=== PATIENT | male | born 1965 | race Caucasian/White ===

== ENCOUNTER 2020-03-11 02:13 | Emergency (ER) | payer MEDICARE, OTHER ==
[2020-03-11 02:38] VITALS: BP 142/94; PULSE 114
--- NOTE | 2020-03-11 02:54 | EDM.PDOC ---
ED HPI GENERAL MEDICAL PROBLEM - General Chief Complaint: Respiratory Problem Stated Complaint: PTSD Time Seen by Provider: 03/11/20 02:49 Source of Information: Reports: Patient History Limitations: Reports: No Limitations - History of Present Illness INITIAL COMMENTS - FREE TEXT/NARRATIVE: Dajuan is a 55 yo male brought in by law enforcement for medical clearance. He had a an anxiety attack during an arrest situation. He complains of feeling tight,shaky,tired and anxious. He says he usually gets this way when anxiety or 'pushed'.He endorses a h/o PTSD,NELLA.He does not take any medications. 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 ED EXAM, GENERAL - Physical Exam Exam: See Below Exam Limited By: No Limitations General Appearance: Anxious, Mild Distress Ears: Normal External Exam Nose: Normal Inspection Throat/Mouth: Normal Inspection Head: Atraumatic Neck: Normal Inspection Respiratory/Chest: No Respiratory Distress Cardiovascular: Tachycardia GI/Abdominal: Normal Bowel Sounds Back Exam: Normal Inspection Extremities: Other (AKA,right) Psychiatric: Anxious Skin Exam: Warm Lymphatic: No Adenopathy EKG INTERPRETATION EKG Date: 03/11/20 Rhythm: NSR Dexter: Normal Course - Vital Signs Last Recorded V/S: Last Vital Signs Temp 98.1 F 03/11/20 02:15 Pulse 114 H 03/11/20 02:15 Resp 21 H 03/11/20 02:15 BP 142/94 H 03/11/20 02:15 Pulse Ox 99 03/11/20 02:15 - Orders/Labs/Meds Labs: Laboratory Tests 03/11/20 03/11/20 03/11/20 Range/Units 02:30 02:30 02:30 WBC 10.0 (4.5-12.0) X10-3/uL RBC 5.05 (4.30-5.75) x10(6)uL Hgb 14.5 (13.5-17.8) g/dL Hct 43.9 (30.0-51.3) % MCV 86.8 (80-96) fL MCH 28.8 (27.7-33.6) pg MCHC 33.1 (32.2-35.4) g/dL RDW 12.3 (11.5-15.5) % Plt Count 374 H (125-369) X10(3)uL MPV 7.2 L (7.4-10.4) fL Neut % (Auto) 79.9 (46-82) % Lymph % (Auto) 15.3 (13-37) % [place] % (Auto) 4.1 (4-12) % Eos % (Auto) 0 L (1.0-5.0) % Baso % (Auto) 1 (0-2) % Neut # (Auto) 8.0 (1.6-8.3) # Lymph # (Auto) 1.5 (0.6-5.0) # [place] # (Auto) 0.4 (0.0-1.3) # Eos # (Auto) 0.0 (0.0-0.8) # Baso # (Auto) 0.1 (0.0-0.2) # Troponin I 5.1 (4.0-60.3) pg/mL Ethyl Alcohol < 0.03 (<0.03) % Meds: Medications Discontinued Medications Generic Name Dose Route Start Last Admin Trade Name Freq PRN Reason Stop Dose Admin Lorazepam 1 mg 03/11/20 02:49 03/11/20 02:55 Ativan IM 03/11/20 02:50 1 mg ONETIME ONE Administration Departure - Departure Time of Disposition: 07:54 Disposition: Home, Self-Care 01 Clinical Impression: Anxiety, Suicidal thoughts - Discharge Information Instructions: Panic Attack, [id number] Referrals: PCP,None [Primary Care Provider] - Forms: ED Department Discharge Care Plan Goals: Follow up with primary care provider as needed. You were given an antianxiety medication in the ER. Sepsis Event Note (ED) - Evaluation Sepsis Screening Result: No Definite Risk - Problem List & Annotations (1) Anxiety SNOMED Code(s): 02874128 Code(s): F41.9 - ANXIETY DISORDER, UNSPECIFIED Status: Acute - Problem List Review Problem List Initiated/Reviewed/Updated: Yes
[2020-03-11] MEDS: LORazepam 2 MG/ML SDV IM ONE (02:55)
== END 2020-03-11 03:30 | disposition home or self-care (01) ==
LOC: FB.ED 02:13
DX: F41.9 Anxiety disorder, unspecified (principal); R45.851 Suicidal ideations; F17.210 Nicotine dependence, cigarettes, uncomplicated; Z88.8 Allergy status to other drugs, medicaments and biological substances
CPT/HCPCS: 36415; 80307; 84484; 85025; 93005; 96372; 99284-25; J2060